=== PATIENT | male | born 1990 | race Caucasian/White ===

== ENCOUNTER 2018-07-31 17:55 | Emergency (ER) | payer BC ==
[2018-07-31] MEDS ORDERED: Diphtheria,Pertussis(Acell),Tetanus Vaccine 0.5 ML Syringe IM ONE (17:59)
[2018-07-31] MEDS ORDERED: Lidocaine 1% 10 ML MDV INJECT ONE (18:00)
--- NOTE | 2018-07-31 18:03 | EDM.PDOC ---
ED HPI GENERAL MEDICAL PROBLEM - General Chief Complaint: Laceration Stated Complaint: CUT FINGER Time Seen by Provider: 07/31/18 18:00 - History of Present Illness INITIAL COMMENTS - FREE TEXT/NARRATIVE: HISTORY AND PHYSICAL: History of present illness: Patient's a 28-year-old white male presents concern of laceration second digit of his right hand that occurred prior to arrival he denies up-to-date tetanus Review of systems: As per history of present illness and below otherwise all systems reviewed and negative. Past medical history: As per history of present illness and as reviewed below otherwise noncontributory. Surgical history: As per history of present illness and as reviewed below otherwise noncontributory. Social history: No reported history of drug or alcohol abuse. Family history: As per history of present illness and as reviewed below otherwise noncontributory. Physical exam: HEENT: Atraumatic, normocephalic, pupils reactive, negative for conjunctival pallor or scleral icterus, mucous membranes moist, throat clear, neck supple, nontender, trachea midline. Lungs: Clear to auscultation, breath sounds equal bilaterally, chest nontender. Heart: S1S2, regular, negative for clicks, rubs, or JVD. Abdomen: Soft, nondistended, nontender. Negative for masses or hepatosplenomegaly. Negative for costovertebral tenderness. Pelvis: Stable nontender. Genitourinary: Deferred. Rectal: Deferred. Extremities: Second digit right hand has approximately 2 cm moderate depth laceration on the volar aspect of the proximal third of the finger neurovascular exam CMS unremarkable there's no tendon involvement Neuro: Awake, alert, oriented. Cranial nerves II through XII unremarkable. Cerebellum unremarkable. Motor and sensory unremarkable throughout. Exam nonfocal. Diagnostics: None Therapeutics: #1 patient was anesthetized 1% lidocaine irrigated prepped and draped in sterile manner closed with 4-0 nylon interrupted sutures bacitracin dressing was applied Impression: #1 laceration second digit right hand Definitive disposition and diagnosis as appropriate pending reevaluation and review of above. - Related Data Allergies Allergy/AdvReac Type Severity Reaction Status Date / Time No Known Allergies Allergy Verified 07/31/18 18:00 Home Meds: Home Meds . [No Known Home Meds] 10/21/15 [History] Past Medical History - Past Surgical History HEENT Surgical History: Reports: Oral Surgery, Tonsillectomy Social & Family History - Family History Family Medical History: Noncontributory ED ROS GENERAL - Review of Systems Review Of Systems: ROS reveals no pertinent complaints other than HPI. ED EXAM, SKIN/RASH Exam: See Below (See dictation) Course - Orders/Labs/Meds Orders: Active Orders 24 hr Category Date Time Status Vaccines to be Administered [RC] PER UNIT ROUTINE Care 07/31/18 17:59 Active Meds: Medications Discontinued Medications Generic Name Dose Route Start Last Admin Trade Name Frechelo PRN Reason Stop Dose Admin Diphtheria/Tetanus/Acell Pertussis 0.5 ml 07/31/18 17:59 Adacel IM 07/31/18 18:00 .ONCE ONE Departure - Departure Time of Disposition: 18:02 Disposition: Home, Self-Care 01 Condition: Good Clinical Impression: Laceration - Discharge Information Additional Instructions: The following information is given to patients seen in the emergency department who are being discharged to home. This information is to outline your options for follow-up care. We provide all patients seen in our emergency department with a follow-up referral. The need for follow-up, as well as the timing and circumstances, are variable depending upon the specifics of your emergency department visit. If you don't have a primary care physician on staff, we will provide you with a referral. We always advise you to contact your personal physician following an emergency department visit to inform them of the circumstance of the visit and for follow-up with them and/or the need for any referrals to a consulting specialist. The emergency department will also refer you to a specialist when appropriate. This referral assures that you have the opportunity for followup care with a specialist. All of these measure are taken in an effort to provide you with optimal care, which includes your followup. Under all circumstances we always encourage you to contact your private physician who remains a resource for coordinating your care. When calling for followup care, please make the office aware that this follow-up is from your recent emergency room visit. If for any reason you are refused follow-up, please contact the [facility] emergency department at and asked to speak to the emergency department charge nurse. Suture removal 10-14 days wound care as discussed return as needed as discussed primary medical doctor for wound check 48 hours - My Orders Last 24 Hours: My Active Orders 07/31/18 17:59 Vaccines to be Administered [RC] PER UNIT ROUTINE - Assessment/Plan Last 24 Hours: My Active Orders 07/31/18 17:59 Vaccines to be Administered [RC] PER UNIT ROUTINE
[2018-07-31] MEDS ORDERED: Bacitracin Oint 1 GM U/D Packet TOP ONE (18:15)
[2018-07-31 18:27] VITALS: BP 154/89
== END 2018-07-31 18:24 | disposition home or self-care (01) ==
LOC: MW.ED 17:55
DX: S61.210A Laceration without foreign body of right index finger without damage to nail, initial encounter (principal); Z23 Encounter for immunization; W20.8XXA Other cause of strike by thrown, projected or falling object, initial encounter
CPT/HCPCS: 12001; 90471; 90715; 99282; J2001